=== PATIENT | male | born 1960 | race Caucasian/White ===

== ENCOUNTER → 2021-02-17 18:17 | Outpatient (BNVA) | payer SELFPAY | PROVIDERS: Family Provider Nurse Practitioner; PCP Nurse Practitioner; Visit Provider Nurse Practitioner Family | DX: R68.89 Other general symptoms and signs (principal); R53.83 Other fatigue; E11.65 Type 2 diabetes mellitus with hyperglycemia | CPT/HCPCS: 36416; 80053; 82962; 83036; 84443; 85025; 87635 ==

== ENCOUNTER → 2023-11-07 15:30 | Outpatient (BNVA) | payer SELFPAY | PROVIDERS: Visit Provider Nurse Practitioner Family | DX: R10.9 Unspecified abdominal pain (principal); E11.9 Type 2 diabetes mellitus without complications; N40.1 Benign prostatic hyperplasia with lower urinary tract symptoms; R39.16 Straining to void; R53.83 Other fatigue; E11.40 Type 2 diabetes mellitus with diabetic neuropathy, unspecified; L57.0 Actinic keratosis; R03.0 Elevated blood-pressure reading, without diagnosis of hypertension; H16.139 Photokeratitis, unspecified eye | CPT/HCPCS: 80053; 80061; 81000; 83036; 84443; 85025; 87086; G0103 ==

== ENCOUNTER → 2023-11-16 10:11 | Outpatient (BNVA) | payer MEDICARE, SELFPAY | PROVIDERS: PCP Nurse Practitioner; Referring Provider Nurse Practitioner; Visit Provider Nurse Practitioner | DX: N40.1 Benign prostatic hyperplasia with lower urinary tract symptoms (principal); R39.16 Straining to void; E11.9 Type 2 diabetes mellitus without complications; Z12.5 Encounter for screening for malignant neoplasm of prostate | CPT/HCPCS: 80053; 83735; G0103 ==

== ENCOUNTER → 2023-12-18 15:32 | Outpatient (BNVA) | payer MEDICARE, SELFPAY | PROVIDERS: PCP Nurse Practitioner; Referring Provider Nurse Practitioner; Visit Provider Nurse Practitioner Family | DX: D48.5 Neoplasm of uncertain behavior of skin (principal); L02.821 Furuncle of head [any part, except face]; L81.4 Other melanin hyperpigmentation; D22.5 Melanocytic nevi of trunk; L85.3 Xerosis cutis; L57.8 Other skin changes due to chronic exposure to nonionizing radiation | CPT/HCPCS: 11102; 99204 ==

== ENCOUNTER → 2023-12-28 10:08 | Outpatient (BNVA) | payer MEDICARE, SELFPAY | PROVIDERS: PCP Nurse Practitioner; Visit Provider Nurse Practitioner | DX: E03.9 Hypothyroidism, unspecified (principal); E08.621 Diabetes mellitus due to underlying condition with foot ulcer; L97.501 Non-pressure chronic ulcer of other part of unspecified foot limited to breakdown of skin; E11.9 Type 2 diabetes mellitus without complications | CPT/HCPCS: 83036; 84443; 87070; 87075; 87077; 87184; 87205 ==

== ENCOUNTER → 2024-01-02 09:43 | Outpatient (BNVA) | payer MEDICARE, SELFPAY | PROVIDERS: PCP Nurse Practitioner; Visit Provider Thoracic Surgery (Cardiothoracic Vascular Surgery) | DX: E11.52 Type 2 diabetes mellitus with diabetic peripheral angiopathy with gangrene (principal); E11.621 Type 2 diabetes mellitus with foot ulcer | CPT/HCPCS: 11042; 97597; 99213 ==

== ENCOUNTER → 2024-01-09 09:58 | Outpatient (BNVA) | payer MEDICARE, SELFPAY | PROVIDERS: PCP Nurse Practitioner; Visit Provider Thoracic Surgery (Cardiothoracic Vascular Surgery) | DX: E11.52 Type 2 diabetes mellitus with diabetic peripheral angiopathy with gangrene (principal); E11.621 Type 2 diabetes mellitus with foot ulcer; L97.521 Non-pressure chronic ulcer of other part of left foot limited to breakdown of skin | CPT/HCPCS: 97597 ==

== ENCOUNTER → 2024-01-15 10:01 | Outpatient (BNVA) | payer MEDICARE, SELFPAY | PROVIDERS: PCP Nurse Practitioner; Visit Provider Podiatrist Foot & Ankle Surgery | DX: L60.3 Nail dystrophy (principal); G62.9 Polyneuropathy, unspecified; E11.621 Type 2 diabetes mellitus with foot ulcer; L97.522 Non-pressure chronic ulcer of other part of left foot with fat layer exposed; L84 Corns and callosities; E11.42 Type 2 diabetes mellitus with diabetic polyneuropathy; Z79.84 Long term (current) use of oral hypoglycemic drugs | CPT/HCPCS: 11055; 11721; 99203 ==

== ENCOUNTER → 2024-01-16 09:59 | Outpatient (BNVA) | payer MEDICARE, SELFPAY | PROVIDERS: PCP Nurse Practitioner; Visit Provider Thoracic Surgery (Cardiothoracic Vascular Surgery) | DX: Z51.89 Encounter for other specified aftercare (principal) | CPT/HCPCS: 99213 ==

== ENCOUNTER → 2024-01-23 08:53 | Outpatient (BNVA) | payer MEDICARE, SELFPAY | PROVIDERS: PCP Nurse Practitioner; Visit Provider Thoracic Surgery (Cardiothoracic Vascular Surgery) | DX: E11.52 Type 2 diabetes mellitus with diabetic peripheral angiopathy with gangrene (principal); E11.621 Type 2 diabetes mellitus with foot ulcer; L97.521 Non-pressure chronic ulcer of other part of left foot limited to breakdown of skin; Z09 Encounter for follow-up examination after completed treatment for conditions other than malignant neoplasm | CPT/HCPCS: 97597 ==

== ENCOUNTER → 2024-02-06 10:07 | Outpatient (BNVA) | payer MEDICARE, SELFPAY | PROVIDERS: PCP Nurse Practitioner; Visit Provider Thoracic Surgery (Cardiothoracic Vascular Surgery) | DX: E11.52 Type 2 diabetes mellitus with diabetic peripheral angiopathy with gangrene (principal); E11.621 Type 2 diabetes mellitus with foot ulcer; L97.421 Non-pressure chronic ulcer of left heel and midfoot limited to breakdown of skin | CPT/HCPCS: 97597 ==

== ENCOUNTER → 2024-02-08 10:20 | Outpatient (BNVA) | payer MEDICARE, SELFPAY | PROVIDERS: PCP Nurse Practitioner; Visit Provider Nurse Practitioner | DX: E03.9 Hypothyroidism, unspecified (principal); E11.42 Type 2 diabetes mellitus with diabetic polyneuropathy; E11.621 Type 2 diabetes mellitus with foot ulcer; L97.509 Non-pressure chronic ulcer of other part of unspecified foot with unspecified severity; E11.9 Type 2 diabetes mellitus without complications; N40.1 Benign prostatic hyperplasia with lower urinary tract symptoms; R39.16 Straining to void | CPT/HCPCS: 84443 ==

== ENCOUNTER → 2024-02-13 08:58 | Outpatient (BNVA) | payer MEDICARE, SELFPAY | PROVIDERS: PCP Nurse Practitioner; Visit Provider Thoracic Surgery (Cardiothoracic Vascular Surgery) | DX: Z09 Encounter for follow-up examination after completed treatment for conditions other than malignant neoplasm (principal); Z87.2 Personal history of diseases of the skin and subcutaneous tissue | CPT/HCPCS: 99212 ==

== ENCOUNTER → 2024-03-18 09:48 | Outpatient (BNVA) | payer MEDICARE, SELFPAY | PROVIDERS: PCP Nurse Practitioner; Visit Provider Podiatrist Foot & Ankle Surgery | DX: L60.3 Nail dystrophy (principal); G62.9 Polyneuropathy, unspecified; L84 Corns and callosities; E11.42 Type 2 diabetes mellitus with diabetic polyneuropathy; Z79.84 Long term (current) use of oral hypoglycemic drugs | CPT/HCPCS: 11055; 11721 ==

== ENCOUNTER → 2024-07-09 13:12 | Outpatient (BNVA) | payer MEDICARE, SELFPAY | PROVIDERS: PCP Nurse Practitioner; Visit Provider Podiatrist Foot & Ankle Surgery | DX: L60.3 Nail dystrophy (principal); G62.9 Polyneuropathy, unspecified; L84 Corns and callosities; E11.42 Type 2 diabetes mellitus with diabetic polyneuropathy; Z79.84 Long term (current) use of oral hypoglycemic drugs | CPT/HCPCS: 11055; 11721 ==

== ENCOUNTER → 2024-08-27 14:23 | Outpatient (BNVA) | payer MEDICARE, SELFPAY | PROVIDERS: PCP Nurse Practitioner; Visit Provider Nurse Practitioner | DX: E11.9 Type 2 diabetes mellitus without complications (principal) | CPT/HCPCS: 80053; 83036; 84443 ==

== ENCOUNTER → 2024-09-09 13:30 | Outpatient (BNVA) | payer MEDICARE, SELFPAY | PROVIDERS: PCP Nurse Practitioner; Visit Provider Podiatrist Foot & Ankle Surgery | DX: L60.3 Nail dystrophy (principal); G62.9 Polyneuropathy, unspecified; L84 Corns and callosities; E11.42 Type 2 diabetes mellitus with diabetic polyneuropathy; Z79.84 Long term (current) use of oral hypoglycemic drugs | CPT/HCPCS: 11056; 11721 ==

== ENCOUNTER → 2024-11-12 13:25 | Outpatient (BNVA) | payer MEDICARE, SELFPAY | PROVIDERS: PCP Nurse Practitioner; Visit Provider Podiatrist Foot & Ankle Surgery | DX: L97.512 Non-pressure chronic ulcer of other part of right foot with fat layer exposed (principal); L97.522 Non-pressure chronic ulcer of other part of left foot with fat layer exposed; E08.621 Diabetes mellitus due to underlying condition with foot ulcer; L03.031 Cellulitis of right toe; Z79.84 Long term (current) use of oral hypoglycemic drugs | CPT/HCPCS: 11042; 99214 ==

== ENCOUNTER → 2024-11-25 13:14 | Outpatient (BNVA) | payer MEDICARE, SELFPAY | PROVIDERS: PCP Nurse Practitioner | DX: E11.52 Type 2 diabetes mellitus with diabetic peripheral angiopathy with gangrene (principal); E11.621 Type 2 diabetes mellitus with foot ulcer; L97.522 Non-pressure chronic ulcer of other part of left foot with fat layer exposed; L97.511 Non-pressure chronic ulcer of other part of right foot limited to breakdown of skin; L97.411 Non-pressure chronic ulcer of right heel and midfoot limited to breakdown of skin | CPT/HCPCS: 11042; 97597; 99213; A6219 ==

== ENCOUNTER → 2024-12-02 10:54 | Outpatient (BNVA) | payer MEDICARE, SELFPAY | PROVIDERS: PCP Nurse Practitioner; Visit Provider Thoracic Surgery (Cardiothoracic Vascular Surgery) | DX: E11.52 Type 2 diabetes mellitus with diabetic peripheral angiopathy with gangrene (principal); E11.621 Type 2 diabetes mellitus with foot ulcer; L97.512 Non-pressure chronic ulcer of other part of right foot with fat layer exposed; L97.521 Non-pressure chronic ulcer of other part of left foot limited to breakdown of skin; L97.411 Non-pressure chronic ulcer of right heel and midfoot limited to breakdown of skin | CPT/HCPCS: 11042; 97597 ==

== ENCOUNTER 2024-12-04 15:57 | Outpatient (CLI) | payer MEDICARE, SELFPAY ==
--- NOTE | 2024-12-04 16:15 | USR_ITS ---
PROCEDURE INFORMATION: Exam: US Duplex Bilateral Lower Extremity Arteries Exam date and time: 12/04/2024 4:13 PM Age: 64 years old Clinical indication: Screening exam; Type 2 diabetes; Additional info: E11.621 - type 2 diabetes mellitus with foot ulcer, w/ phillip TECHNIQUE: Imaging protocol: Real-time ultrasound scan of the arteries of the bilateral lower extremities with 2-D harman scale, color Doppler flow and spectral waveform analysis. Images documented and saved. COMPARISON: No relevant prior studies available. FINDINGS: Right common femoral artery: No occlusion or significant stenosis. Normal waveform. Right superficial femoral artery: No occlusion or significant stenosis. Monophasic waveform beginning in the distal superficial femoral artery. Right popliteal artery: Monophasic waveform. Right calf/foot arteries: Monophasic waveform. Left common femoral artery: No occlusion or significant stenosis. Normal waveform. Left superficial femoral artery: No occlusion or significant stenosis. Biphasic waveform beginning in the proximal superficial femoral artery. Left popliteal artery: Biphasic waveform. Left calf/foot arteries: Biphasic waveform. US/CV arterial duplex [facility] [id number] IMPRESSION: Biphasic waveform beginning in the distal superficial femoral artery of the right leg. This may indicate a flow limiting stenosis of the right distal superficial femoral artery.
== END 2024-12-04 15:58 | disposition home or self-care (01) ==
LOC: RAD 16:00
PROVIDERS: PCP Nurse Practitioner; Visit Provider Thoracic Surgery (Cardiothoracic Vascular Surgery)
DX: E11.621 Type 2 diabetes mellitus with foot ulcer (principal); L97.509 Non-pressure chronic ulcer of other part of unspecified foot with unspecified severity; G62.9 Polyneuropathy, unspecified; R93.89 Abnormal findings on diagnostic imaging of other specified body structures
CPT/HCPCS: 93925

== ENCOUNTER → 2024-12-16 10:16 | Outpatient (BNVA) | payer MEDICARE, SELFPAY | PROVIDERS: PCP Nurse Practitioner; Visit Provider Thoracic Surgery (Cardiothoracic Vascular Surgery) | DX: E11.52 Type 2 diabetes mellitus with diabetic peripheral angiopathy with gangrene (principal); E11.621 Type 2 diabetes mellitus with foot ulcer; L97.412 Non-pressure chronic ulcer of right heel and midfoot with fat layer exposed; L97.511 Non-pressure chronic ulcer of other part of right foot limited to breakdown of skin; L97.521 Non-pressure chronic ulcer of other part of left foot limited to breakdown of skin | CPT/HCPCS: 11042; 97597; A6197; A6248 ==

== ENCOUNTER → 2024-12-23 09:44 | Outpatient (BNVA) | payer MEDICARE, SELFPAY | PROVIDERS: PCP Nurse Practitioner; Visit Provider Thoracic Surgery (Cardiothoracic Vascular Surgery) | DX: E11.52 Type 2 diabetes mellitus with diabetic peripheral angiopathy with gangrene (principal); E11.621 Type 2 diabetes mellitus with foot ulcer; L97.511 Non-pressure chronic ulcer of other part of right foot limited to breakdown of skin; L97.521 Non-pressure chronic ulcer of other part of left foot limited to breakdown of skin | CPT/HCPCS: 97597 ==

== ENCOUNTER → 2024-12-30 09:25 | Outpatient (BNVA) | payer MEDICARE, SELFPAY | PROVIDERS: PCP Nurse Practitioner; Visit Provider Thoracic Surgery (Cardiothoracic Vascular Surgery) | DX: E11.52 Type 2 diabetes mellitus with diabetic peripheral angiopathy with gangrene (principal); E11.621 Type 2 diabetes mellitus with foot ulcer; L97.511 Non-pressure chronic ulcer of other part of right foot limited to breakdown of skin; L97.521 Non-pressure chronic ulcer of other part of left foot limited to breakdown of skin | CPT/HCPCS: 97597; A6248 ==

== ENCOUNTER → 2025-01-09 10:34 | Outpatient (BNVA) | payer MEDICARE, SELFPAY | PROVIDERS: PCP Nurse Practitioner; Visit Provider Thoracic Surgery (Cardiothoracic Vascular Surgery) | DX: E11.52 Type 2 diabetes mellitus with diabetic peripheral angiopathy with gangrene (principal); E11.621 Type 2 diabetes mellitus with foot ulcer; L97.511 Non-pressure chronic ulcer of other part of right foot limited to breakdown of skin; Z09 Encounter for follow-up examination after completed treatment for conditions other than malignant neoplasm | CPT/HCPCS: 97597 ==

== ENCOUNTER → 2025-01-16 09:49 | Outpatient (BNVA) | payer MEDICARE, SELFPAY | PROVIDERS: PCP Nurse Practitioner; Visit Provider Thoracic Surgery (Cardiothoracic Vascular Surgery) | DX: E11.52 Type 2 diabetes mellitus with diabetic peripheral angiopathy with gangrene (principal); E11.621 Type 2 diabetes mellitus with foot ulcer; L97.511 Non-pressure chronic ulcer of other part of right foot limited to breakdown of skin | CPT/HCPCS: 97597 ==

== ENCOUNTER → 2025-01-23 09:49 | Outpatient (BNVA) | payer MEDICARE, SELFPAY | PROVIDERS: PCP Nurse Practitioner; Visit Provider Thoracic Surgery (Cardiothoracic Vascular Surgery) | DX: E11.52 Type 2 diabetes mellitus with diabetic peripheral angiopathy with gangrene (principal); E11.621 Type 2 diabetes mellitus with foot ulcer; L97.511 Non-pressure chronic ulcer of other part of right foot limited to breakdown of skin | CPT/HCPCS: 97597; A6021; A6212 ==

== ENCOUNTER → 2025-01-30 09:41 | Outpatient (BNVA) | payer MEDICARE, SELFPAY | PROVIDERS: PCP Nurse Practitioner; Visit Provider Thoracic Surgery (Cardiothoracic Vascular Surgery) | DX: E11.52 Type 2 diabetes mellitus with diabetic peripheral angiopathy with gangrene (principal); E11.621 Type 2 diabetes mellitus with foot ulcer; L97.511 Non-pressure chronic ulcer of other part of right foot limited to breakdown of skin | CPT/HCPCS: 97597; A6021 ==

== ENCOUNTER 2025-02-04 12:12 | Outpatient (CLI) | payer MEDICARE, SELFPAY ==
--- NOTE | 2025-02-04 12:15 | CTR_ITS ---
PROCEDURE INFORMATION: Exam: CTA Abdominal Aorta and Bilateral Lower Extremities (Run-off) With Contrast Exam date and time: 02/04/2025 1:27 PM Age: 64 years old Clinical indication: Other: Ulcer on right big toe; Prior surgery; Surgery date: 6+ months; Surgery type: RT lower leg; RT big toe ulcer anterior; Additional info: E11.621 - type 2 diabetes mellitus with foot ulcer TECHNIQUE: Imaging protocol: Computed tomographic angiography of the of the abdominal aorta, pelvis and bilateral lower extremities with contrast. 3D rendering (Not supervised by radiologist): MIP and/or 3D reconstructed images were created by the technologist. Radiation optimization: All CT scans at this facility use at least one of these dose optimization techniques: automated exposure control; mA and/or kV adjustment per patient size (includes targeted exams where dose is matched to clinical indication); or iterative reconstruction. Contrast material: OMNIPAQUE 350; Contrast volume: 125 ml; Contrast route: INTRAVENOUS (IV); COMPARISON: No relevant prior studies available. RADIATION DOSE METRICS: Total DLP (mGy-cm): 1493.38 FINDINGS: Limitations: There is beam hardening artifact which partially obscures vasculature in right lower leg. Aorta: There is moderate aortic atherosclerotic disease. There is no aortic dissection or aneurysm. Celiac trunk and mesenteric arteries: No stenosis in the celiac or superior mesenteric arteries. Inferior mesenteric artery is patent. Renal arteries: Renal arteries are normal. Right iliac arteries: Mild plaque in the right common iliac artery without stenosis. Normal right external iliac artery. Mild plaque with less than 50% stenosis in the right internal iliac artery. Right femoral/popliteal arteries: Right common femoral artery demonstrates minimal plaque and no stenosis. Right profunda femoris artery demonstrates minimal plaque and no stenosis. Right superficial femoral artery demonstrates moderate plaque and multifocal less than 50% stenosis in the distal portion. There is a short segment of near occlusion in the far distal right superficial femoral artery. Right popliteal artery demonstrates mild plaque and greater than 70% stenosis over short segment distally (sagittal series 13, image 194). Right infrapopliteal arteries: There is short segment of occlusion of the right tibioperoneal trunk (sagittal series 13, image 188). There is moderate right infrapopliteal arterial atherosclerotic disease. There is patent single vessel (posterior tibial artery) runoff to the right foot. There is multifocal high-grade stenosis in the proximal right anterior tibial artery with contrast fading in the mid lower leg. There is no contrast filling of the peroneal artery beyond the lower leg. Left iliac arteries: Mild plaque in the left common iliac artery without stenosis. Normal left external iliac artery. Mild plaque with less than 50% stenosis in the left internal iliac artery. Left femoral/popliteal arteries: There is focal less than 50% stenosis in the left popliteal artery due to noncalcific plaque. There is mild plaque with less than 50% stenosis in the left common femoral artery. The left profunda femoris artery is normal. There is mild plaque with multifocal less than 50% stenosis in the left mid to distal superficial femoral artery. Left infrapopliteal arteries: Moderate left infrapopliteal arterial atherosclerotic disease with patent single vessel (posterior tibial artery) runoff to the left foot. The left anterior tibial artery is occluded in the proximal lower leg. The left peroneal artery is patent to the lower leg but contrast fades distally and patency at the ankle is indeterminate. Veins: The portal, splenic and superior mesenteric veins are patent. Liver: The liver is normal. Diaphragm: There is a small sliding-type hiatal hernia. Gallbladder and biliary ducts: The gallbladder is normal. There is no biliary dilation. Pancreas: The pancreas is unremarkable. Spleen: The spleen is unremarkable. Adrenal glands: There is hypertrophy of the right adrenal gland. Kidneys and ureters: The kidneys are unremarkable. No hydronephrosis or stones. No ureteral dilation. Stomach and bowel: The small bowel is nondilated. Colon is mildly diffusely stool distended. Appendix: The appendix is normal. Urinary bladder: There is mild diffuse thickening of the bladder wall which could represent muscular hypertrophy or cystitis. Reproductive: There is nonspecific mild enlargement of the prostate gland. Intraperitoneal space: There is no free air or significant intraperitoneal free fluid. Lymph nodes: There is no lymphadenopathy in the retroperitoneum, mesentery, pelvis or inguinal regions. Bones/joints: There is severe multilevel degenerative disease in the lumbar spine. There is endplate sclerosis and erosions at L1-L2 associated with vacuum disc phenomena. The pelvis and hips are unremarkable. There is an intramedullary wade in the right tibia. No acute osseous findings. Soft tissues: There is a small fat containing right inguinal hernia. There is a subtle soft tissue ulcer in the medial margin of the right great toe. CT/CT angio abd aorta runof [id number] IMPRESSION: 1. High-grade short-segment stenosis of the right distal superficial femoral artery just above the knee. 2. High-grade short segment stenosis of the right distal popliteal artery. 3. High-grade short segment stenosis of the right distal tibioperoneal trunk. 4. Patent single vessel runoff to the right foot. 5. No hemodynamically significant stenosis in the pelvis, left femoral or popliteal arteries. 6. Moderate left infrapopliteal arterial atherosclerotic disease with patent single vessel runoff to the left foot. 7. Bone sclerosis and endplate erosions at L1-L2 is most likely due to severe degenerative disc disease. Sequelae of chronic osteomyelitis cannot be excluded. Correlate with clinical signs of infection. 8. Stool distended colon. This finding would support a clinical diagnosis of constipation. 9. Incidental findings above.
[2025-02-04 13:22] LABS: Blood Urea Nitrogen 19 mg/dL (8-23); Glomerular Filtration Rate 74.8 mL/min (90-130)
[2025-02-04] MEDS: iohexol 350 mg/mL 500 mL Btl (per mL) IV (13:37)
== END 2025-02-04 12:13 | disposition home or self-care (01) ==
PROVIDERS: PCP Nurse Practitioner; Visit Provider Thoracic Surgery (Cardiothoracic Vascular Surgery)
DX: E11.621 Type 2 diabetes mellitus with foot ulcer (principal); L97.509 Non-pressure chronic ulcer of other part of unspecified foot with unspecified severity; E11.51 Type 2 diabetes mellitus with diabetic peripheral angiopathy without gangrene; I70.203 Unspecified atherosclerosis of native arteries of extremities, bilateral legs
CPT/HCPCS: 75635; 82565; 84520

== ENCOUNTER → 2025-02-06 09:50 | Outpatient (BNVA) | payer MEDICARE, SELFPAY | PROVIDERS: PCP Nurse Practitioner; Visit Provider Thoracic Surgery (Cardiothoracic Vascular Surgery) | DX: E11.52 Type 2 diabetes mellitus with diabetic peripheral angiopathy with gangrene (principal); E11.621 Type 2 diabetes mellitus with foot ulcer; L97.511 Non-pressure chronic ulcer of other part of right foot limited to breakdown of skin | CPT/HCPCS: 97597; A6021 ==

== ENCOUNTER → 2025-02-20 08:43 | Outpatient (BNVA) | payer MEDICARE, SELFPAY | PROVIDERS: PCP Nurse Practitioner; Visit Provider Thoracic Surgery (Cardiothoracic Vascular Surgery) | DX: E11.52 Type 2 diabetes mellitus with diabetic peripheral angiopathy with gangrene (principal); E11.621 Type 2 diabetes mellitus with foot ulcer; L97.511 Non-pressure chronic ulcer of other part of right foot limited to breakdown of skin | CPT/HCPCS: 97597; A6021; A6213 ==

== ENCOUNTER → 2025-02-27 08:27 | Outpatient (BNVA) | payer MEDICARE, SELFPAY | PROVIDERS: PCP Nurse Practitioner; Visit Provider Thoracic Surgery (Cardiothoracic Vascular Surgery) | DX: E11.52 Type 2 diabetes mellitus with diabetic peripheral angiopathy with gangrene (principal); E11.621 Type 2 diabetes mellitus with foot ulcer; L97.511 Non-pressure chronic ulcer of other part of right foot limited to breakdown of skin | CPT/HCPCS: 97597; A6021 ==

== ENCOUNTER → 2025-03-06 08:54 | Outpatient (BNVA) | payer MEDICARE, SELFPAY | PROVIDERS: PCP Nurse Practitioner; Visit Provider Thoracic Surgery (Cardiothoracic Vascular Surgery) | DX: E11.52 Type 2 diabetes mellitus with diabetic peripheral angiopathy with gangrene (principal); E11.621 Type 2 diabetes mellitus with foot ulcer; L97.511 Non-pressure chronic ulcer of other part of right foot limited to breakdown of skin | CPT/HCPCS: 97597 ==

== ENCOUNTER → 2025-03-20 09:02 | Outpatient (BNVA) | payer MEDICARE, SELFPAY | PROVIDERS: PCP Nurse Practitioner; Visit Provider Thoracic Surgery (Cardiothoracic Vascular Surgery) | DX: E11.52 Type 2 diabetes mellitus with diabetic peripheral angiopathy with gangrene (principal); E11.621 Type 2 diabetes mellitus with foot ulcer; L97.511 Non-pressure chronic ulcer of other part of right foot limited to breakdown of skin | CPT/HCPCS: 97597; A6021 ==

== ENCOUNTER → 2025-03-25 14:58 | Outpatient (BNVA) | payer MEDICARE, SELFPAY | PROVIDERS: PCP Nurse Practitioner; Referring Provider Thoracic Surgery (Cardiothoracic Vascular Surgery); Visit Provider Internal Medicine Cardiovascular Disease | DX: I73.9 Peripheral vascular disease, unspecified (principal); I70.0 Atherosclerosis of aorta; R01.1 Cardiac murmur, unspecified; Z87.891 Personal history of nicotine dependence; R07.9 Chest pain, unspecified | CPT/HCPCS: 36415; 80048; 85025; 85610; 93005; 99204 ==

== ENCOUNTER → 2025-03-27 15:20 | Outpatient (BNVA) | payer MEDICARE, SELFPAY | PROVIDERS: PCP Nurse Practitioner; Visit Provider Nurse Practitioner | DX: E03.9 Hypothyroidism, unspecified (principal); E11.9 Type 2 diabetes mellitus without complications | CPT/HCPCS: 83036; 84443 ==

== ENCOUNTER → 2025-04-03 11:13 | Outpatient (BNVA) | payer MEDICARE, SELFPAY | PROVIDERS: PCP Nurse Practitioner; Visit Provider Thoracic Surgery (Cardiothoracic Vascular Surgery) | DX: E11.52 Type 2 diabetes mellitus with diabetic peripheral angiopathy with gangrene (principal); E11.621 Type 2 diabetes mellitus with foot ulcer; L97.511 Non-pressure chronic ulcer of other part of right foot limited to breakdown of skin; E11.622 Type 2 diabetes mellitus with other skin ulcer; L97.311 Non-pressure chronic ulcer of right ankle limited to breakdown of skin | CPT/HCPCS: 97597; A6021; A6248 ==

== ENCOUNTER → 2025-04-17 11:20 | Outpatient (BNVA) | payer MEDICARE, SELFPAY | PROVIDERS: PCP Nurse Practitioner; Visit Provider Thoracic Surgery (Cardiothoracic Vascular Surgery) | DX: E11.52 Type 2 diabetes mellitus with diabetic peripheral angiopathy with gangrene (principal); E11.621 Type 2 diabetes mellitus with foot ulcer; L97.411 Non-pressure chronic ulcer of right heel and midfoot limited to breakdown of skin; I87.2 Venous insufficiency (chronic) (peripheral); L97.311 Non-pressure chronic ulcer of right ankle limited to breakdown of skin | CPT/HCPCS: 87070; 87077; 87186; 97597 ==

== ENCOUNTER → 2025-04-28 08:46 | Outpatient (BNVA) | payer MEDICARE, SELFPAY | PROVIDERS: PCP Nurse Practitioner; Visit Provider Thoracic Surgery (Cardiothoracic Vascular Surgery) | DX: E11.52 Type 2 diabetes mellitus with diabetic peripheral angiopathy with gangrene (principal); E11.621 Type 2 diabetes mellitus with foot ulcer; L97.511 Non-pressure chronic ulcer of other part of right foot limited to breakdown of skin; I87.2 Venous insufficiency (chronic) (peripheral); L97.311 Non-pressure chronic ulcer of right ankle limited to breakdown of skin | CPT/HCPCS: 97597 ==

== ENCOUNTER 2025-05-13 09:26 | Observation (INO) | payer MEDICARE, SELFPAY ==
[2025-05-13] VITALS (24 sets, daily range): BP systolic 113–171; BP diastolic 71–95; PULSE 69–86; RESP 8–20; TEMP 36.7; O2SAT 96–100; BMI 32.2
--- NOTE | 2025-05-13 09:00 | XACV_ITS ---
Exam Room: 2 Ht: 152 cm Wt: 75 kg BSA: 1.81 m2 Gender: Male : 1960 Any Known Allergies: No known allergies Exam Priority: Routine Procedure(s): Procedure Description: Diagnostic procedure Procedure Description: Peripheral Cath Diagnostic Procedure Procedure Description: Abdominal aortic angiography Procedure Description: Lower extremities' angiography Procedure Description: Peripheral vascular Intervention Procedure Description: PV Balloon Procedure Description: Miscellaneous Procedure Description: ACT KHAMU, Martinez; Diagnostic Cath Status: Elective Lower Extremity Diagnostic Findings Indication for peripheral angiogram: Lifestyle-limiting claudication Catheters used: UF catheter, long 6 Guatemalan sheath, seeker, Glidewire, lithotripsy IVL catheterAbdominal aortogram: No significant aneurysm but luminal irregularity Right renal artery: No significant stenosis Left renal artery: No significant stenosisRight common iliac: No significant stenosis Right external iliac: No significant stenosis Right internal iliac: No significant stenosis Right common femoral artery: No significant stenosis Right profundofemoral artery: No significant stenosis Right SFA: No significant stenosis Right popliteal artery: High-grade mid 100% occlusion with a short segment reconstitute in the distal segment through collaterals from the proximal segment Right tibioperoneal trunk: High-grade tandem mid to distal calcified stenosis Right anterior tibial artery: Luminal irregularity without significant stenosis Right posterior tibial artery: Proximal to mid segment appeared to be diffusely diseased Right peroneal artery: Luminal irregularity without significant stenosisLeft common iliac artery: Luminal irregularity without significant stenosis Left external iliac artery: Luminal irregular without significant Left internal iliac artery: Luminal irregularity without significant stress Left common femoral artery: Luminal irregularity without significant stenosis Left profundofemoral artery: Luminal irregularity without significant stenosis Left SFA artery: Luminal irregularity without significant Left popliteal artery: Luminal irregularities without significant/ Left tibioperoneal artery: Distal segment has moderate disease Left anterior tibial artery: Ostial to proximal segment has high-grade stenosis Left posterior tibial artery: Appeared to be 100% chronically occluded Left peroneal artery: Luminal irregularity without significant stenosis. Lower Extremity Interventional Findings Percutaneous angioplasty, lithotripsy using IV L catheter and tibioperoneal trunk and popliteal artery of the right leg using multiple pulses followed by drug-coated balloon, since we did not get satisfactory result therefore in order to improve luminal gain we proceeded with short Omnilink stent. Left common femoral artery was cannulated with a short 6 Guatemalan sheath, 8 was then exchanged with long 6 Guatem[place] sheath. We were then able to cross mid popliteal calcified 100% occluded lesion with the help of Glidewire and seeker. We then exchanged Glidewire with run-through wire. Over run-through wire we brought IV L catheter which was then placed in tibioperoneal trunk, multiple lithotripsy ultrasound we were delivered at 2 dylan of the balloon. Balloon angioplasty was performed in the tibioperoneal trunkWe then pulled IV L catheter into distal right popliteal artery, multiple pulses were delivered at 4 dylan. IV L catheter was then withdrawn out of the body.Run-through wire was then advanced into left posterior tibial. Using Lindsay 2.5 x 200 balloon multiple balloon angioplasty of mid to proximal posterior tibial artery was performed which resulted in good angiographic result and proximal to mid high-grade lesion improved to 10 to 15%After removing Lindsay balloon, lutonics 6.0 x 150 mm was introduced and inflated for 3 minutes at normal atmosphere in the popliteal artery of the right leg. Unsatisfactory result was obtained as luminal gain was not good then 100% lesion was reduced to 50% therefore decided to proceed with stent placement. Drug-coated balloon was withdrawn over the body. Over the wire Omni Link 6.0 x 29 mm stent was then deployed in the popliteal artery with excellent angiographic result.There was no complication observed good three-vessel runoff was noted in the right leg.Long destination sheath was then exchanged for short 6 Guatemalan sheath which was sutured in to pull out once ACT is less than 45. Recommendations 1-Return to inpatient for close monitoring and routine cath care 2-Risk factor modification for secondary prevention 3-Statin and aspirin 81 mg life-long, if tolerated 4-Patient was pre-loaded with 300 mg of Plavix, continue Plavix 75mg p.o. daily for at least one year. 5-Add low-dose rivaroxaban 6-Follow up with Dr. Martinez in four weeks and your primary care in 10 days. Pressures Phase:Rest AO : 166 / 74 ( 111 ) @ 12:15:00 PM 167 / 75 ( 110 ) @ 12:20:00 PM 187 / 87 ( 128 ) @ 12:52:00 PM 126 / 61 ( 84 ) @ 1:14:00 PM 151 / 81 ( 108 ) @ 1:28:00 PM 114 / 64 ( 81 ) @ 1:55:00 PM 156 / 79 ( 109 ) @ 2:07:00 PM Hemodynamic Data Phase:Rest AO : 166.0 / 74.0 ( 111.0 ) @ 12:15:00 PM 167.0 / 75.0 ( 110.0 ) @ 12:20:00 PM 187.0 / 87.0 ( 128.0 ) @ 12:52:00 PM 126.0 / 61.0 ( 84.0 ) @ 1:14:00 PM 151.0 / 81.0 ( 108.0 ) @ 1:28:00 PM 114.0 / 64.0 ( 81.0 ) @ 1:55:00 PM 156.0 / 79.0 ( 109.0 ) @ 2:07:00 PM Clinical Evaluation EBL: 5mL-10mL Procedural Details Pre-Procedure Time Out. Identified patient by full name and date of as verbalized by the patient/guarantor. Does the consent match the physician's order: Yes. Accurate & Complete Informed Consent: Yes. Inpatient/Outpatient History & Physical on Chart: Yes. If H&P is completed, is and addenduem needed: No; If yes, is the addendum complete: N/A. Visualize and Verify Site with Patient/Guarantor: N/A. Relevant Radiology Images available: Yes. The risks, benefits, and alternatives of sedation and/or procedure were discussed by physician. The patient agrees to continue. Procedure started. Correct patient, site and procedure confirmed by cath team. PERRLA. Strong, equal hand room service runner bilaterally. Lungs clear x 5 lobes. IV Site on Arrival: 20 gauge in the right forearm. IV Fluids: 0.9% NaCl at KVO. 0 mL infused prior to laborer cheesemaking. Pre Procedural Pulses: bilateral dorsalis pedis was Doppled. Pre Procedural Pulses: bilateral posterior tibial was Doppled. Pre Procedural Pulses: bilateral radial was 3+. Oxygen started at 2liters/min via nasal canula. bilateral groins was prepped with chloroprep then draped in the usual sterile fashion. Baseline sample Acquired. HR: 74 BPM. Physician arrived. Physician scrubbed in. Immediate Pre-Procedure Time Out. Correct Patient: Yes; Correct Procedure: Yes; Correct Site: Yes; Correct Patient Position: Yes; Correct Supplies: Yes; Dried Flammable Prep: Yes; Blood Products Available: N/A;. Lidocaine 1% infiltrated to the left groin. Arterial access obtained with micropuncture set. A Left femoral angiogram was performed to determine safe placement of closure device. A 5Fr UF catheter in over wire. Abdominal aortogram performed in AP @ 10 mL/sec for a total of 30 mL. Glidewire in through UF catheter. UF repositioned to right common femoral. Glidewire out. DSA performed of the right leg. Glidewire inserted. The short 6Fr sheath exchanged for a 45cm Flexor sheath. Sheath injected and a runoff of the right leg performed. Seeker inserted OTW. Glidewire out. Runthrough wire inserted. Seeker out OTW. Inflation number : 1 A AB ARMADA 14 OTW [id number] was prepped and advanced across the Popliteal, Right , then inflated to 8 DYLAN for 2:00 seconds. Inflation number: 2 The AB ARMADA 14 OTW [id number] was reinflated across the Popliteal, Right, to 8 DYLAN for 1:23 seconds. Inflation number: 1 The AB ARMADA 14 OTW [id number] was reinflated across the Tibial Peroneal Trunk, Right, to 4 DYLAN for 1:48 seconds. Balloon out over wire. Results checked. Inflation number : 2 A Shockwave 5.0x150 was prepped and advanced across the Tibial Peroneal Trunk, Right , then inflated to 2 DYLAN for 0:38 seconds. Inflation number: 3 The Shockwave 5.0x150 was reinflated across the Tibial Peroneal Trunk, Right, to 2 DYLAN for 0:13 seconds. Jerel Yip in for Jeovany Kim. Inflation number: 4 The Shockwave 5.0x150 was reinflated across the Tibial Peroneal Trunk, Right, to 2 DYLAN for 0:15 seconds. Inflation number: 5 The Shockwave 5.0x150 was reinflated across the Tibial Peroneal Trunk, Right, to 2 DYLAN for 0:21 seconds. Inflation number: 6 The Shockwave 5.0x150 was reinflated across the Tibial Peroneal Trunk, Right, to 2 DYLAN for 0:33 seconds. Inflation number: 3 The Shockwave 5.0x150 was reinflated across the Popliteal, Right, to 4 DYLAN for 0:33 seconds. Inflation number: 4 The Shockwave 5.0x150 was reinflated across the Popliteal, Right, to 4 DYLAN for 0:19 seconds. Inflation number: 5 The Shockwave 5.0x150 was reinflated across the Popliteal, Right, to 4 DYLAN for 0:34 seconds. Inflation number: 6 The Shockwave 5.0x150 was reinflated across the Popliteal, Right, to 4 DYLAN for 0:24 seconds. Inflation number: 7 The Shockwave 5.0x150 was reinflated across the Popliteal, Right, to 4 DYLAN for 0:19 seconds. Balloon out over wire. ACT drawn. Results 257 seconds. Therapeutic limits - pre-heparin administration 90-150 seconds and monitoring heparin during a vascular procedure >250 seconds. Angiography performed. Results checked. Second 300cm runthrough in to posterior tibial artery. Inflation number : 1 A AB ARMADA 14 OTW [id number] was prepped and advanced across the Posterior Tibial, Right , then inflated to 4 DYLAN for 0:26 seconds. Jeovany Kim in for Joann Carreno. Inflation number: 2 The AB ARMADA 14 OTW [id number] was reinflated across the Posterior Tibial, Right, to 4 DYLAN for 2:29 seconds. Inflation number: 3 The AB ARMADA 14 OTW [id number] was reinflated across the Posterior Tibial, Right, to 10 DYLAN for 2:04 seconds. Balloon out over wire. Inflation number : 8 A Lutonix [id number] was prepped and advanced across the Popliteal, Right , then inflated to 7 DYLAN for 3:01 seconds. Balloon out over wire. Inflation number: 1 The AB ARMADA 14 OTW [id number] was reinflated across the Anterior Tibial, Right, to 17 DYLAN for 2:15 seconds. Inflation number: 2 The AB ARMADA 14 OTW [id number] was reinflated across the Anterior Tibial, Right, to 18 DYLAN for 2:01 seconds. Balloon out over wire. Results checked. One of the Runthrough wires removed. Inflation Number : 1 A Omnilink 6.0x29 -Lot Number# _[id number] EXP: 10/12/2027 was prepped and advanced across the Distal Superficial Femoral, Right. The stent was deployed at 11 DYLAN for 0:23 seconds. Stent balloon out over wire. Results checked. Wire out. The long sheath was exchanged for a short 6Fr sheath. ACT drawn. Results 256 seconds. Therapeutic limits - pre-heparin administration 90-150 seconds and monitoring heparin during a vascular procedure >250 seconds. Sheath injected in Left common femoral artery and runoff performed. A Angio-Seal VIP ([facility]) was successful obtaining hemostatsis at the Left Femoral artery insertion site. PERRLA. Strong, equal hand room service runner bilaterally. No VTE prophylaxis required. Medication's Wasted: Nitro = 49.2 mcg. Medication's Wasted: Other = Fentanyl 75mcg Versed 1 mg. Total IV fluids: 250 mL. Vital chart was stopped. Post-op diagnosis: PAD. Complications: None. Estimated blood loss: 5mL-10mL. Responsiveness - Normal response to verbal stimuli; alert and oriented, PERRLA. Airway - Unaffected, no intervention required; spontaneous ventilation. Circulation: W/N/L, pulses unchanged. Nausea/Vomiting: No. Procedure completed. Access Site Site: Left Femoral artery Sheath Size: 6 Fr Hemostasis Method: Angio-Seal VIP ([facility]) Hemostasis Success: Successful Procedure Medications Start: 10:35 AM Stop: 10:35 AM Medication: Fentanyl Amount: 50 mcg Route: I.V. Start: 10:48 AM Stop: 10:48 AM Medication: Versed Amount: 1 mg Route: I.V. Start: 10:48 AM Stop: 10:48 AM Medication: Fentanyl Amount: 50 mcg Route: I.V. Start: 11:09 AM Stop: 11:09 AM Medication: Versed Amount: 1 mg Route: I.V. Start: 11:09 AM Stop: 11:09 AM Medication: Fentanyl Amount: 50 mcg Route: I.V. Start: 11:26 AM Stop: 11:26 AM Medication: Heparin Amount: 5000 units Route: I.V. Start: 11:40 AM Stop: 11:40 AM Medication: Heparin Amount: 2000 units Route: I.V. Start: 11:56 AM Stop: 11:56 AM Medication: Versed Amount: 1 mg Route: I.V. Start: 11:56 AM Stop: 11:56 AM Medication: Fentanyl Amount: 50 mcg Route: I.V. Start: 12:03 PM Stop: 12:03 PM Medication: Versed Amount: 1 mg Route: I.V. Start: 12:12 PM Stop: 12:12 PM Medication: Nitrogylcerin Amount: 400 mcg Route: I.A. Start: 12:16 PM Stop: 12:16 PM Medication: Heparin Amount: 2000 units Route: I.V. Start: 12:26 PM Stop: 12:26 PM Medication: Versed 1 mg and Fentanyl 25 mcg Amount: 1 Route: I.V. Start: 12:53 PM Stop: 12:53 PM Medication: Nitrogylcerin Amount: 400 mcg Route: I.A. I, the attending physician, have reviewed and verified all procedure medications. Yes, all medications given per verbal order History/Risk Factors Hypertension: No Dyslipidemia: No Peripheral Arterial Disease (PAD): Yes Myocardial Infarction (AZ): No Obesity: No Renal Disease: No Tobacco Use: Former Prior Interventions PCI: No CABG: No Valve Surgery: No Report Signatures Finalized by Shahab Martinez MD on 06/08/2025 09:57 PM
[2025-05-13 09:57] LABS: Hematocrit 40.2 % (37-53); Hemoglobin 13.00 g/dL (11.27-16.99); Mean Corpuscular HGB Conc 32.3 g/dL (30-55); Mean Corpuscular Hemoglobin 28.4 pg (27-33); Mean Corpuscular Volume 87.8 fl (82-101); Nucleated Red Blood Cells % 0 %; Platelet Count 298 10^3/cmm (157-399); Red Blood Count 4.58 10^6/uL (3.85-5.65); White Blood Count 5.60 10^3/uL (3.29-11.43)
[2025-05-13 10:22] LABS: Anion Gap 16.1 (5-19); Blood Urea Nitrogen 17 mg/dL (8-23); Calcium 9.3 mg/dL (8.5-10.5); Carbon Dioxide 23 mmol/L (22-29); Chloride 104 mmol/L (98-107); Creatinine Clr Calc Pharmacy 75.9621; Glucose 99 mg/dL (65-115); Osmolality Calculated 290 mOsm/kg (285-295); Potassium 4.1 mmol/L (3.5-5.1); Sodium 139 mmol/L (136-145)
--- NOTE | 2025-05-13 10:55 | W.PM.OPSFHP ---
Same Day Surgery H&P Indication for Procedure/HPI DATE OF PROCEDURE: May 13, 2025 CHIEF COMPLAINT/INDICATIONFOR SURGICAL PROCEDURE: Critical limb ischemia Nonhealing right foot ulcer Abnormal CTA with runoff PREOP DIAGNOSIS: Critical limb ischemia PLANNED PROCEDURE: Operation Date: 05/13/25 10:00 Proposed Procedures p Peripheral Diagnostic - Perip angio Bilat(Bilateral) - Shahab Martinez MD 65-year-old male has been referred to us through wound care for nonhealing right foot wounds saw Dr. Smith on 27 March 2025 for severe peripheral arterial disease CTA with runoff showed high-grade lesion in the right SFA and below the knee as well as left leg. It is the reason today patient is here for peripheral angiogram and intervention if indicated Medications/Allergies* Allergies/Adverse Reactions Allergy/AdvReac Type Severity Reaction Status Date / Time No Known Allergies Allergy Verified 05/01/25 10:24 Current Medications: Generic Name Dose Route Start Last Admin Trade Name Freq PRN Reason Stop Dose Admin Sodium Chloride 1,000 mls @ 50 mls/hr 05/13/25 09:00 05/13/25 09:52 Sodium Chloride 0.9% IV 05/14/25 04:59 Not Given .Q20H ONE Pertinent History/Comorbid Conditions* Family History (Updated 03/25/25 @ 15:10 by Marita Moya LPN) Diabetes Father Congestive heart failure (CHF) Father Social History Smoking and tobacco/nicotine status: former use of tobacco/nicotine Alcohol intake: former Substance/Drug Use: never Pertinent Exam Findings alert, oriented x 3, clear to auscultation bilaterally, regular rate & rhythm, operative site marked and procedure specific exam findings Conscious Sedation Assessment PATIENT ASSESSED PRIOR TO SEDATION, WITH NO CHANGE NOTED: Yes AIRWAY EVAL/ANESTHESIA PLAN: ASA II, Risks, benefits & alternatives of sedation and/or procedure discussed and Patient agrees to continue as planned ADDITIONAL INFORMATION: Patient has been explained all risk-benefit and alternative for the procedure. Patient restand 2% risk of stroke major bleed. Patient was notified. 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 Patient agrees to it and would like to proceed with it. Recommendations Other Coding Level of Care Code Acute Code for Chg Fwd
--- NOTE | 2025-05-13 13:21 | PM.PROC ---
Procedure Note: Date of procedure: 05/13/25 Pre-procedure diagnosis: Critical limb ischemia of right leg Post-procedure diagnosis: same Procedure: Peripheral angiogram was performed: High-grade subtotal occluded distal SFA to proximal popliteal calcified stenosis, mid popliteal artery moderate stenosis High-grade mid and distal right tibioperoneal trunk stenosis, mid to distal anterior tibial complete occlusion Proximal to mid posterior tibial complete occlusion Lithotripsy balloon angioplasty and drug-coated balloon followed by stent in the distal SFA Balloon angioplasty with lithotripsy of the tibioperoneal trunk Balloon angioplasty of the anterior and posterior tibial Excellent angiographic result with good buddhism of the flow all the way to the foot. Plan: Patient was loaded with Plavix 300 mg, continue aspirin 81 mg, continue dual antiplatelet therapy add 2.5 mg of Eliquis twice daily from tomorrow IV fluid 100 mL/h for next 12 hours Bedrest for 4-hour post Angio-Seal in the left common femoral Full note to be dictated. Coding Level of Care Code Acute Code for Eduardo Medellin
--- NOTE | 2025-05-13 13:50 | PC.NURSE ---
Patient received from skilled labor via bed. Patient s/p peripheral angiogram with left femoral access. Angioseal was deployed in skilled labor. Dressing to site remains c,d,i without s/s of bleeding or hematoma formation observed. Instructed patient on site care with restrictions. Patient verbalized complete understanding.
[2025-05-14 04:09] LABS: Hematocrit 36.3 % (37-53); Hemoglobin 11.60 g/dL (11.27-16.99); Mean Corpuscular HGB Conc 32.0 g/dL (30-55); Mean Corpuscular Hemoglobin 28.0 pg (27-33); Mean Corpuscular Volume 87.7 fl (82-101); Nucleated Red Blood Cells % 0 %; Platelet Count 264 10^3/cmm (157-399); Red Blood Count 4.14 10^6/uL (3.85-5.65); White Blood Count 6.55 10^3/uL (3.29-11.43)
[2025-05-14 04:41] LABS: Anion Gap 14.7 (5-19); Blood Urea Nitrogen 18 mg/dL (8-23); Calcium 8.9 mg/dL (8.5-10.5); Carbon Dioxide 23 mmol/L (22-29); Chloride 105 mmol/L (98-107); Creatinine Clr Calc Pharmacy 67.5218; Glucose 150 mg/dL (65-115); Osmolality Calculated 291 mOsm/kg (285-295); Potassium 4.7 mmol/L (3.5-5.1); Sodium 138 mmol/L (136-145)
[2025-05-14 06:00] VITALS: PULSE 69; RESP 16; O2SAT 98
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
--- NOTE | 2025-05-14 09:45 | PC.NURSE ---
Patient discharged to home. Instruction provided regarding follow up appointments, new medications with changes and site care with restrictions. Patient verbalized complete understanding. New medications provided via [id number] prior to discharge. Left groin dressing remains c,d,i without s/s of bleeding or hematoma formation observed. Patient taken by wheelchair to private vehicle. No distress observed.
[2025-05-14 09:48] VITALS: BP 127/72; O2SAT 97
== END 2025-05-14 09:50 | disposition home or self-care (01) ==
LOC: CSU 21:09 → CCL 05-14 07:23 → CSU 05-14 07:23 → CCL 05-14 07:24 → CSU 05-14 07:24
PROVIDERS: Admitting Provider Internal Medicine Cardiovascular Disease; PCP Nurse Practitioner; Visit Provider Internal Medicine Cardiovascular Disease
DX: I70.213 Atherosclerosis of native arteries of extremities with intermittent claudication, bilateral legs (principal); Z87.891 Personal history of nicotine dependence; Z79.84 Long term (current) use of oral hypoglycemic drugs; Z79.82 Long term (current) use of aspirin; L97.519 Non-pressure chronic ulcer of other part of right foot with unspecified severity
CPT/HCPCS: 36415; 37228; 75625; 75716; 80048; 85025; 85347; 99152; 99153; C1725; C1760; C1769; C1876; C1887; C1894; C2623; C9765; G0269; G0378; J1644; J2250; J3010; J3490; J7030; J9999; Q0163; Q9967

== ENCOUNTER 2025-05-16 10:36 | Outpatient (CLI) | payer MEDICARE, SELFPAY | END 2025-05-16 10:37 | disposition home or self-care (01) | LOC: LAB 05-23 06:59 | PROVIDERS: PCP Nurse Practitioner; Visit Provider Internal Medicine Cardiovascular Disease | DX: E03.9 Hypothyroidism, unspecified (principal); E11.9 Type 2 diabetes mellitus without complications | CPT/HCPCS: 83036; 84443 ==

== ENCOUNTER → 2025-05-26 14:51 | Outpatient (BNVA) | payer MEDICARE, SELFPAY | PROVIDERS: PCP Nurse Practitioner; Visit Provider Thoracic Surgery (Cardiothoracic Vascular Surgery) | DX: E11.52 Type 2 diabetes mellitus with diabetic peripheral angiopathy with gangrene (principal); E11.621 Type 2 diabetes mellitus with foot ulcer; L97.511 Non-pressure chronic ulcer of other part of right foot limited to breakdown of skin; Z09 Encounter for follow-up examination after completed treatment for conditions other than malignant neoplasm | CPT/HCPCS: 97597 ==

== ENCOUNTER → 2025-06-03 11:15 | Outpatient (BNVA) | payer MEDICARE, SELFPAY | PROVIDERS: PCP Nurse Practitioner; Visit Provider Thoracic Surgery (Cardiothoracic Vascular Surgery) | DX: Z09 Encounter for follow-up examination after completed treatment for conditions other than malignant neoplasm (principal); Z87.2 Personal history of diseases of the skin and subcutaneous tissue | CPT/HCPCS: 99212 ==

== ENCOUNTER → 2025-06-10 13:50 | Outpatient (BNVA) | payer MEDICARE, SELFPAY | PROVIDERS: PCP Nurse Practitioner; Referring Provider Nurse Practitioner; Visit Provider Nurse Practitioner | DX: Z01.89 Encounter for other specified special examinations (principal); E08.621 Diabetes mellitus due to underlying condition with foot ulcer; L97.502 Non-pressure chronic ulcer of other part of unspecified foot with fat layer exposed | CPT/HCPCS: 84443 ==

== ENCOUNTER → 2025-06-11 11:38 | Outpatient (BNVA) | payer MEDICARE, SELFPAY | PROVIDERS: PCP Nurse Practitioner; Visit Provider Internal Medicine Cardiovascular Disease | DX: I73.9 Peripheral vascular disease, unspecified (principal); R01.1 Cardiac murmur, unspecified | CPT/HCPCS: 99214 ==

== ENCOUNTER 2025-07-03 07:26 | Outpatient (CLI) | payer MEDICARE, SELFPAY ==
--- NOTE | 2025-07-03 07:00 | USCV_ITS ---
Quan Smith Age: 65 Gender: M : 1960 Exam Date: 07/03/2025 07:42 Ordering Phys: Guanako Smith MD ([email or web address]) Technologist: Exam Location: [facility] [place] Indication: cp sob BP: 130 / 80 HR: 95 Rhythm: Sinus Technical Quality: Adequate MEASUREMENTS (Male / Female) Normal Values 2D ECHO LV Diastolic Diameter PLAX 4.6 cm 4.2 - 5.9 / 3.9 - 5.3 cm IVS Diastolic Thickness 1.1 cm 0.6 - 1.0 / 0.6 - 0.9 cm IVS Systolic Thickness 1.8 cm LVPW Diastolic Thickness 1.3 cm 0.6 - 1.0 / 0.6 - 0.9 cm LVPW Systolic Thickness 1.7 cm LVOT Diameter 2.0 cm LV Ejection Fraction 2D Teich 68.4 % LV Ejection Fraction MOD 4C 57.4 % LV Ejection Fraction MOD 2C 74.7 % LV Ejection Fraction 2C AL 76.4 % LA Diameter 3.7 cm RA Systolic Volume 4C AL 37.2 ml RA Systolic Volume 4C MOD 37.0 ml LA Sys Volume AL 55.7 cm cubed LA Sys Volume Index AL 29.7 cm cubed/m squared Aorta at Sinotubular Diameter 3.1 cm IVC Diameter 1.4 cm M-MODE LA Ao Ratio MM 1.2 AV Cusp Separation MM 1.0 cm DOPPLER AV Peak Velocity 379.8 cm/s LVOT Peak Velocity 104.0 cm/s AV Area Cont Eq vti 1.1 cm squared AV Area Cont Eq pk 0.9 cm squared MV Peak Velocity 128.0 cm/s MV Area PHT 4.1 cm squared Mitral E to A Ratio 0.9 TV Peak Velocity 259.0 cm/s TR Peak Velocity 315.0 cm/s TR Peak Gradient 39.7 mmHg TV Peak E Velocity 83.0 cm/s PV Peak Velocity 101.0 cm/s FINDINGS Left Ventricle Normal left ventricular cavity size. Normal left ventricular systolic function. Left ventricular ejection fraction is 68%. Mild left ventricular hypertrophy. Normal diastolic function. Right Ventricle Normal right ventricular size and systolic function. Mild pulmonary hypertension, RVSP 43 mmHg. Right Atrium Normal right atrial size. Left Atrium Normal left atrial size. IA Septum Normal appearance of the interatrial septum. Mitral Valve Normal mitral valve structure. Mild mitral valve regurgitation. Aortic Valve Aortic valve not well visualized. Severe aortic valve calcification. Low gradient [id number] aortic valve stenosis, DARRYL 1.1 cm2 and LVOT/AV velocity ratio 0.27. No aortic valve regurgitation. Tricuspid Valve Normal tricuspid valve structure. Trace regurgitation. Pulmonic Valve Normal pulmonic valve structure. No pulmonic valve stenosis or regurgitation. Pericardium No pericardial effusion. Aorta Normal diameter of the aortic root and ascending thoracic aorta. IVC Normal IVC diameter. CONCLUSIONS Normal left ventricular cavity size. Normal left ventricular systolic function. Left ventricular ejection fraction is 68%. Mild left ventricular hypertrophy. Normal right ventricular size and systolic function. Mild pulmonary hypertension, RVSP 43 mmHg. Moderate to severe aortic valve stenosis Guanako Smith MD, FACC (Electronically Signed) Final Date: 08 July 2025 21:13 S
== END 2025-07-03 07:27 | disposition home or self-care (01) ==
LOC: RAD 07:28
PROVIDERS: PCP Nurse Practitioner; Visit Provider Internal Medicine Cardiovascular Disease
DX: R01.1 Cardiac murmur, unspecified (principal); R07.9 Chest pain, unspecified; R06.02 Shortness of breath; I51.7 Cardiomegaly; I27.20 Pulmonary hypertension, unspecified; I35.0 Nonrheumatic aortic (valve) stenosis
CPT/HCPCS: 93306